=== PATIENT | female | born 1980 | race Caucasian/White ===

== ENCOUNTER 2018-05-22 16:41 | Emergency (ER) | payer SELFPAY ==
[~2018-05-22] VITALS: Ht 154.9 cm; Wt 57.3 kg
[~2018-05-22 16:41] MED LIST: ADDERALL 15 MG15 MG PO; KLONOPIN 1MG1 MG PO; LORAZEPAM0.5 M1 PO; ZOFRAN ODT4 MG PO
[2018-05-22] MEDS ORDERED: OXYCODONE HCL15 MG PO (16:50)
[2018-05-22 17:15] LABS: BASO # 0.1 (0.02-0.10); EOS # 0.2 (0.04-0.40); EOS % 1.4 % (1.0-5.0); HEMATOCRIT 40.5 % (37.0-47.0); LYMPH# 4.4 (1.50-4.00); MEAN CELL VOLUME 92 fl (78-100); MEAN CORPUSCULAR HEMOGLOBIN 32 pg (27-31); MEAN CORPUSCULAR HGB CONC 35 g/dL (33-37); MEAN PLATELET VOLUME 9.5 fl (7.4-10.4); MONO # 0.6 (0.20-0.80); NEU # 5.3 (1.40-6.50); PLATELET COUNT 329 K/mm3 (130-400); RED BLOOD COUNT 4.42 M/mm3 (4.10-5.30); WHITE BLOOD COUNT 10.4 K/mm3 (4.8-10.8)
[2018-05-22 17:37] LABS: URINE APPEARANCE CLOUDY; URINE BILIRUBIN NEGATIVE (NEGATIVE); URINE BLOOD NEGATIVE (NEGATIVE); URINE COLOR YELLOW; URINE GLUCOSE NEGATIVE (NEGATIVE); URINE KETONE NEGATIVE (NEGATIVE); URINE LEUKOCYTE ESTERASE 2+ (NEGATIVE); URINE NITRATE NEGATIVE (NEGATIVE); URINE PROTEIN(semi-quant) TRACE mg/dL (NEGATIVE); URINE UROBILINOGEN NORMAL (NORMAL)
[2018-05-22 17:38] LABS: URINE MUCUS PRESENT (NOT PRESENT)
[2018-05-22 18:37] LABS: CLUE CELLS PRESENT (Not Observd)
[2018-05-22] MEDS ORDERED: DOXYCYCLINE HY100 M5 PO (18:39)
[2018-05-22] MEDS ORDERED: METRONIDAZOLE500 M1 PO (18:39)
[2018-05-22] MEDS ORDERED: DIFLUCAN150 M1 PO (18:39)
[2018-05-22 18:58] VITALS: BP 116/63
== END 2018-05-22 18:58 | disposition home or self-care (01) ==
LOC: ED 16:41
PROVIDERS: Family Medicine
DX: N73.0 Acute parametritis and pelvic cellulitis (principal); N94.6 Dysmenorrhea, unspecified; F17.200 Nicotine dependence, unspecified, uncomplicated; Z79.899 Other long term (current) drug therapy
CPT/HCPCS: J0696; Q0111